=== PATIENT | male | born 1990 | race Caucasian/White ===

== ENCOUNTER → 2020-10-17 | Outpatient (CLI) | payer OTHER ==
--- NOTE | 2020-10-17 16:12 | RAD ---
XR FOOT_RIGHT 2 VIEWS, XR EXAM OF ANKLE_RIGHT 2 VIEWS DATE: 10/17/2020 3:11 PM INDICATION: ANKLE AND FOOT PAIN, FALL DOWN STAIR YESTERDAY / Spl. Instructions: / History: COMPARISON: None. FINDINGS: Bones: There is no evidence of acute fracture or dislocation. Tiny posterior calcaneal enthesophyte. Joints: The ankle mortise is congruent. No widening of the distal tibiofibular syndesmosis. Miscellaneous: None. IMPRESSION: No acute fracture. Electronically signed by: Pablito Ibarra MD (10/17/2020 4:10 PM) [id number]
== END ==
LOC: RAD 15:04
PROVIDERS: ATTEND Family Medicine
DX: M77.31 Calcaneal spur, right foot (principal)
CPT/HCPCS: 73600; 73620